=== PATIENT | female | born 1985 | race American Indian/Alaskan Native ===

== ENCOUNTER 2017-06-06 18:51 | Emergency (ER) | payer OTHER ==
[~2017-06-06] VITALS: Ht 167.6 cm; Wt 77.1 kg
[~2017-06-06 18:51] MED LIST: ABILIFY5 MG PO; BACTRIM DS TAB1 EACH PO; CAMPRAL333 M1 PO; CEPHALEXIN500 MG PO; GABAPENTIN300 MG PO; IBUPROFEN400 MG PO; IBUPROFEN800 MG PO; PENICILLIN V P500 MG PO; PRILOSEC20 MG PO; TOPAMAX50 MG PO; ULTRAM50 MG PO; ZOFRAN ODT4 MG SL
[2017-06-06] MEDS ORDERED: NORCO 5-325 TA1 EACH PO (23:18)
== END 2017-06-06 23:32 | disposition home or self-care (01) ==
LOC: ED 18:51
PROC: 2W3FX1Z Immobilization of Left Hand using Splint (ICD-10-PCS; principal; 2017-06-06)
DX: S52.202A Unspecified fracture of shaft of left ulna, initial encounter for closed fracture (principal); F17.200 Nicotine dependence, unspecified, uncomplicated; V49.9XXA Car occupant (driver) (passenger) injured in unspecified traffic accident, initial encounter
CPT/HCPCS: 29125; 73060; 73090; 74177; 80053; 80176; 81001; 84703; 85025; 87077; 87088; 87186; 96374; 96375; 99284; G0480; J2405; J3010; Q9967

== ENCOUNTER 2017-06-13 11:15 | Emergency (ER) | payer OTHER ==
[~2017-06-13] VITALS: Ht 167.6 cm; Wt 77.1 kg
[~2017-06-13 11:15] MED LIST changes: +NORCO 5-325 TA1 EACH PO
[2017-06-13] MEDS ORDERED: IBUPROFEN600 MG PO (11:49)
== END 2017-06-13 11:56 | disposition home or self-care (01) ==
LOC: ED 11:15
PROC: 2W3DX1Z Immobilization of Left Lower Arm using Splint (ICD-10-PCS; principal; 2017-06-13)
DX: S52.202A Unspecified fracture of shaft of left ulna, initial encounter for closed fracture (principal); F17.200 Nicotine dependence, unspecified, uncomplicated; Z90.49 Acquired absence of other specified parts of digestive tract
CPT/HCPCS: 29125; 99283

== ENCOUNTER 2017-09-20 16:03 | Emergency (ER) | payer OTHER ==
[~2017-09-20] VITALS: Ht 167.6 cm; Wt 77.1 kg
[~2017-09-20 16:03] MED LIST changes: +IBUPROFEN600 MG PO
[2017-09-20] MEDS ORDERED: SUBOXONE 4 MG-1 EACH SL (16:41)
== END 2017-09-20 19:06 | disposition home or self-care (01) ==
LOC: ED 16:03
DX: Z00.00 Encounter for general adult medical examination without abnormal findings (principal)
CPT/HCPCS: 80053; 80176; 81001; 84443; 84703; 85025; 87088; 99283; G0480

== ENCOUNTER 2017-12-30 10:13 | Emergency (ER) | payer OTHER ==
[~2017-12-30] VITALS: Ht 167.6 cm; Wt 77.1 kg
[~2017-12-30 10:13] MED LIST changes: +SUBOXONE 4 MG-1 EACH SL
[2017-12-30] MEDS ORDERED: CLEOCIN HCL300 MG PO (11:00)
== END 2017-12-30 10:27 | disposition home or self-care (01) ==
LOC: ED 10:13
DX: S69.91XA Unspecified injury of right wrist, hand and finger(s), initial encounter (principal); X58.XXXA Exposure to other specified factors, initial encounter

== ENCOUNTER 2017-12-30 10:41 | Emergency (ER) | payer OTHER ==
[~2017-12-30] VITALS: Ht 167.6 cm; Wt 77.1 kg
[2017-12-30] MEDS ORDERED: CLEOCIN HCL300 MG PO (11:00)
== END 2017-12-30 11:08 | disposition home or self-care (01) ==
LOC: ED 10:41
DX: L03.012 Cellulitis of left finger (principal); Z23 Encounter for immunization; F17.200 Nicotine dependence, unspecified, uncomplicated; W29.8XXA Contact with other powered hand tools and household machinery, initial encounter
CPT/HCPCS: 90471; 90715; 99283

== ENCOUNTER 2018-01-10 11:59 | Emergency (ER) | payer OTHER ==
[~2018-01-10] VITALS: Ht 167.6 cm; Wt 77.1 kg
[~2018-01-10 11:59] MED LIST changes: +CLEOCIN HCL300 MG PO
== END 2018-01-10 13:45 | disposition home or self-care (01) ==
LOC: ED 11:59
DX: S80.02XA Contusion of left knee, initial encounter (principal); F17.200 Nicotine dependence, unspecified, uncomplicated; V03.90XA Pedestrian on foot injured in collision with car, pick-up truck or van, unspecified whether traffic or nontraffic accident, initial encounter
CPT/HCPCS: 73560; 99283

== ENCOUNTER 2018-02-17 16:46 | Emergency (ER) | payer OTHER ==
[~2018-02-17] VITALS: Ht 167.6 cm; Wt 77.1 kg
== END 2018-02-17 17:35 | disposition home or self-care (01) ==
LOC: ED 16:46
DX: D22.5 Melanocytic nevi of trunk (principal); Z23 Encounter for immunization; F17.200 Nicotine dependence, unspecified, uncomplicated
CPT/HCPCS: 90471; 90715; 99282

== ENCOUNTER 2019-12-02 10:52 | Emergency (ER) | payer OTHER ==
[~2019-12-02] VITALS: Ht 167.6 cm; Wt 84.8 kg
--- OUTSIDE RECORDS SUMMARY | ~2019-12-02 | XMS | Clinical Summary ---
Demographics + + + | Address | [address] | | | [place] [address] | + + + | Home Phone | | + + + | Preferred Language | Unknown | + + + | Marital Status | Single | + + + | Episcopal Affiliation | Unknown | + + + | Race | Unknown | + + + | Ethnic Group | Unknown | + + + Author + + + | Author | [facility] (Historical as of | | | 07-13-19) | + + + | Organization | [facility] (Historical as of | | | 07-13-19) | + + + | Address | Unknown | + + + | Phone | Unavailable | + + + Support + + +---------+ + | Name | Relationship | Address | Phone | + + +---------+ + | None,Contact | ECON | Unknown | | + + +---------+ + Care Team Providers + +------+ + | Care Rn New Graduate Name | Role | Phone | + +------+ + | Anay Hooks PA-C | PP | | + +------+ + Allergies Not on File Current Medications Not on file Active Problems Not on file Social History + +-------+ +--------+------+ | Tobacco Use | Types | Packs/Day | Years | Date | | | | | Used | | + +-------+ +--------+------+ | Never Assessed | | | | | + +-------+ +--------+------+ + + + | Sex Assigned at | Date Recorded | | | | + + + | Not on file | | + + + Plan of Treatment Not on file Results Not on filefrom Last 3 Months Insurance + +--------+ +------+-------+ + | Payer | Benefi | Subscriber | Type | Phone | Address | | | t Plan | ID | | | | | | / | | | | | | | Group | | | | | + +--------+ +------+-------+ + | [place] | YELLOW | [id number] | | | | | PLANS | [place] | | | | | + +--------+ +------+-------+ + | MEDICAID | MEDICA | [id number] | | | [address] | | | ID | | | | [place] | | | [place] | | | | [phone] | + +--------+ +------+-------+ + + +--------+ +--------+ + + | Guarantor Name | Accoun | Relation to | Date | Phone | Billing Address | | | t Type | Patient | of | | | | | | | | | | + +--------+ +--------+ + + | MAGY FAIR V | Person | Self [birth year] Home: | [address] | | | al/Fam | | 1985 | [phone] | [place] [address] | | | ml | | | [phone] | | + +--------+ +--------+ + +"
--- OUTSIDE RECORDS SUMMARY | ~2019-12-02 | XMS | Encounter Summary ---
Demographics + + + | Address | [address] | | | [place] [address] | + + + | Home Phone | | + + + | Preferred Language | Unknown | + + + | Marital Status | Single | + + + | Rastafari Affiliation | Unknown | + + + | Race | Unknown | + + + | Ethnic Group | Unknown | + + + Author + + + | Author | [facility] [place] | | | and [place] | + + + | Organization | [facility] | | | and [place] | + + + | Address | Unknown | + + + | Phone | Unavailable | + + + Support + + +---------+ + | Name | Relationship | Address | Phone | + + +---------+ + | Pattie Tilley | ECON | Unknown | | + + +---------+ + Care Team Providers + +------+ + | Care Milieu Manager Name | Role | Phone | + +------+ + PCP | Unavailable | + +------+ + Encounter Details +--------+ + + + + | Date | Type | Department | Care Team | Description | +--------+ + + + + | 02/06/ | Hospital | [facility] | | | | 2001 | Encounter | [facility] | | | | | CENTER [address] | | | | | | [place] | | | | | | [phone] | | | | | | [phone] | | | +--------+ + + + + Social History + +-------+ +--------+------+ | Tobacco [...] on file | | + + + + + + + | Job Start Date | Occupation | Industry | + + + + | Not on file | Not on file | Not on file | + + + + + + + + | Travel History | Travel Start | Travel End | + + + + + + | No recent travel history available. | + + documented as of this encounter Plan of Treatment Not on filedocumented as of this encounter Visit Diagnoses Not on filedocumented in this encounter"
--- OUTSIDE RECORDS SUMMARY | ~2019-12-02 | XMS | Clinical Summary ---
Demographics + + + | Address | [address] | | | [place] [address] | + + + | Home Phone | | + + + | Preferred Language | Unknown | + + + | Marital Status | Single | + + + | Zoroastrianism Affiliation | Unknown | + + + | Race | Unknown | + + + | Ethnic Group | Unknown | + + + Author + + + | Author | [facility] [place] | | | and [place] | + + + | Organization | [facility] | | | and [...] Team Providers + +------+ + | Care Accounts Administrator Name | Role | Phone | + +------+ + | Anay Hooks PA-C | PCP | | + +------+ + Allergies Not on File Medications Not on file Active Problems Not [...] recent travel history available. | + + Last Filed Vital Signs Not on file Plan of Treatment + + + + + | Health Maintenance | Due Date | Last Done | Comments | + + + + + | Vaccine: | | | | | Dtap/Tdap/Td (1 - | 5 | | | | Tdap) | | | | + + + + + | Cervical Cancer | | | | | Screening (Pap) | 4 | | | + + + + + | Vaccine: Influenza | | | | | (#1) | 9 | | | + + + + + Results Not on filefrom Last 3 Months"
--- OUTSIDE RECORDS SUMMARY | ~2019-12-02 | XMS | Clinical Summary ---
Demographics + + + | Address | [address] | | | [place] [address] | + + + | Home Phone | | + + + | Preferred Language | Unknown | + + + | Marital Status | Single | + + + | Jainism Affiliation | Unknown | + + + | Race | Unknown | + + + | Ethnic Group | Unknown | + + + Author + + + | Author | [facility] (Historical as of | | | 07-13-19) | + + + | Organization | [facility] (Historical as of | | | 07-13-19) [...] Team Providers + +------+ + | Care Pecan Huller Name | Role | Phone | + [...] | | + +--------+ +------+-------+ + | [employer] | YELLOW | [id number] | | | | | PLANS | [place] | | | | | + +--------+ +------+-------+ + | MEDICAID | MEDICA | [id number] | | | [address] | | | ID | | | | [place] | | | [place] | | | | [phone] | + +--------+ +------+-------+ + + +--------+ [...] | 1985 | [phone] | [place] [address] | | | ml | | | [phone] | | + +--------+ +--------+ + +"
--- OUTSIDE RECORDS SUMMARY | ~2019-12-02 | XMS | Clinical Summary ---
Demographics + + + | Address | [address] | | | [place] [address] | + + + | Home Phone | | + + + | Preferred Language | Unknown | + + + | Marital Status | Single | + + + | Alevism Affiliation | Unknown | + + + | Race | Unknown | + + + | Ethnic Group | Unknown | + + + Author + + + | Author | [facility] | | | and [place] | + + + | Organization | [facility] | | | and [place] [...] Team Providers + +------+ + | Care Slab Conditioner Supervisor Name | Role | Phone | + [...]
--- OUTSIDE RECORDS SUMMARY | ~2019-12-02 | XMS | Encounter Summary ---
Demographics + + + | Address | [address] | | | [place] [address] | + + + | Home Phone | | + + + | Preferred Language | Unknown | + + + | Marital Status | Single | + + + | Uatsdin Affiliation | Unknown | + + + | Race | Unknown | + + + | Ethnic Group | Unknown | + + + Author + + + | Author | [facility] [place] | | | and [place] | + + + | Organization | [facility] | | | and [...] Team Providers + +------+ + | Care Press Tender Short Goods Name | Role | Phone | + +------+ + PCP | Unavailable | + +------+ + Encounter Details +--------+ + + + + | Date | Type | Department | Care Team | Description | +--------+ + + + + | 02/06/ | Hospital | [facility] | | | | 2001 | Encounter | [facility] | | | | | | CENTER [address] | | | | | | [place] | | | | | | [phone] | | | | | | [phone] | | | +--------+ + + + [...]
--- OUTSIDE RECORDS SUMMARY | 2019-12-02 10:56 | XMS ---
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 [place] VISIT COUNT (12 MO.) 1 [facility] TOTAL 1 NOTE: Visits indicate total known visits. ED/UCC VISIT TRACKING (12 MO.) 12/02/2019 10:53 [facility] [place] TYPE: Emergency COMPLAINT: - TOE INJ INPATIENT VISIT TRACKING (12 MO.) No inpatient visits to display in this time frame [email or web address]
== END 2019-12-02 12:28 | disposition home or self-care (01) ==
LOC: ED 10:52
DX: S92.515A Nondisplaced fracture of proximal phalanx of left lesser toe(s), initial encounter for closed fracture (principal); W22.8XXA Striking against or struck by other objects, initial encounter
CPT/HCPCS: 73630; 99283-25

== ENCOUNTER 2022-12-13 17:12 | Emergency (ER) | payer OTHER ==
[~2022-12-13] VITALS: Ht 167.6 cm; Wt 99.8 kg
--- OUTSIDE RECORDS SUMMARY | 2022-12-13 17:21 | XMS ---
PreManage Notification: MAGY OGLESBY Security Records Management Analyst Events No recent Security Events currently on file CRITERIA MET - Group Notification CARE PROVIDERS [facility] 12/03/2019-[facility] PHONE: [phone] Kelsea has no Care Guidelines for this patient. Care History Medical/Surgical 12/03/2019 [facility] \T\middot;\T\nbsp; PATIENT- [facility] ELIGIBLE \T\middot;\T\nbsp; PLEASE REFER PATIENT TO [facility] FOR NON EMERGENT MEDICAL NEEDS. \T\middot;\ T\nbsp; [facility] CAN SEE PATIENTS SAME DAY FOR APTS IF PATIENT CALLS FIRST THING IN THE MORNING. E.D. VISIT COUNT (12 MO.) [address] [place] [address] TOTAL 1 NOTE: Visits indicate total known visits. ED/UCC VISIT TRACKING (12 MO.) 12/13/2022 17:12 [facility] [place] TYPE: Emergency COMPLAINT: - FALL INPATIENT VISIT TRACKING (12 MO.) No inpatient visits to display in this time frame [id number]
== END 2022-12-13 21:20 | disposition home or self-care (01) ==
LOC: ED 17:12
DX: S39.012A Strain of muscle, fascia and tendon of lower back, initial encounter (principal); S00.03XA Contusion of scalp, initial encounter; M43.17 Spondylolisthesis, lumbosacral region; W01.10XA Fall on same level from slipping, tripping and stumbling with subsequent striking against unspecified object, initial encounter
CPT/HCPCS: 70450; 72100; 84703; 99284-25

== ENCOUNTER 2024-09-09 13:05 | Emergency (ER) | payer OTHER ==
[~2024-09-09] VITALS: Ht 167.6 cm; Wt 88.5 kg
[~2024-09-09 13:05] MED LIST changes: +CIPRO500 MG PO; +DICYCLOMINE HCL10 MG PO; +HYDROCODON-ACE1 EA11 PO; +METRONIDAZOLE500 MG PO; +ONDANSETRON ODT8 MG PO
[2024-09-09] MEDS ORDERED: KETOROLAC TROMETHAMINE 30 MG/ML VIAL IV ONE (13:45)
[2024-09-09] MEDS ORDERED: ondansetron HCL 4 MG/2 ML VIAL IV ONE (13:45)
[2024-09-09 13:46] LABS: BILIRUBIN, URINE NEGATIVE (negative); BLOOD/HGB, URINE NEGATIVE (Negative); KETONE, URINE NEGATIVE (Negative); LEUK ESTERASE, URINE NEGATIVE (negative); NITRITE, URINE NEGATIVE (negative)
[2024-09-09 13:47] LABS: BASOPHILS 0.4 % (0-2); EOSINOPHILS 1.1 % (0-6); HEMATOCRIT 38.6 % (35.0-50.0); HEMOGLOBIN 13.4 g/dL (12.0-18.0); LYMPHOCYTES 29.9 % (24-44); MCH 29.4 (27-36); MCHC 34.7 g/dl (30-36); MCV 84.9 fl (81-99); MONOCYTES 7.9 % (0-12); NEUTROPHILS 60.7 % (39-80); PLATELET COUNT 282 K/uL (140-440); RBC 4.55 M/ul (4.3-5.7); RDW 13.8 (10.5-15.0)
[2024-09-09 14:08] LABS: ALBUMIN 3.7 g/dL (3.4-5.0); ALBUMIN/GLOBULIN RATIO 1.03 (1.1-2.4); ANION GAP 12.8 (7-21); BILIRUBIN, TOTAL 0.4 ng/dL (0.2-1.0); BUN/CREATININE RATIO 13.43 (6.0-28.6); CALCIUM 8.6 mg/dL (8.5-10.1); CREATININE, SERUM 0.67 mg/dL (0.55-1.02); POTASSIUM 3.8 mmol/L (3.5-5.1); PROTEIN, TOTAL 7.3 g/dL (6.4-8.2)
[2024-09-09 15:26] VITALS: BP 105/57
== END 2024-09-09 15:28 | disposition home or self-care (01) ==
LOC: ED 13:05
PROVIDERS: Emergency Medicine
DX: R10.2 Pelvic and perineal pain (principal); Z87.11 Personal history of peptic ulcer disease; Z88.5 Allergy status to narcotic agent; Z90.49 Acquired absence of other specified parts of digestive tract
CPT/HCPCS: 36415; 74176; 80053; 81003; 83690; 84703; 85025; 96374; 96375; 99284-25; J1885; J2405